=== PATIENT | male | born 1950 | race Caucasian/White ===

== ENCOUNTER 2018-07-05 10:34 | Emergency (ER) | payer MEDICARE ==
--- NOTE | 2018-07-05 11:27 | XRAY Report ---
Reason: cough, fatigue Procedure Date: 07/05/2018 Accession Number: [id number] / [id number] Procedure: XR - Chest 2 View X-Ray CPT Code: 50123 FULL RESULT: EXAM: CHEST RADIOGRAPHY EXAM DATE: 07/05/2018 11:15 AM. CLINICAL HISTORY: Cough, fatigue. COMPARISON: None. TECHNIQUE: 2 views. FINDINGS: Lungs/Pleura: No focal opacities evident. No pleural effusion. No pneumothorax. Normal volumes. Mediastinum: Cardiac silhouette size is within normal limits. There is mild atherosclerotic calcification of the aortic arch. There is a tortuous contour of the descending thoracic aorta. Other: The patient is post median sternotomy with intact sternal cerclage wires. No acute osseous abnormality. There are mild degenerative disk changes of the thoracic spine. IMPRESSION: No acute cardiopulmonary abnormality. RADIA
[2018-07-05] MEDS ORDERED: OSELTAMIVIR 75 MG CAPSULE PO STA (12:06)
--- NOTE | 2018-07-05 12:08 | ED Physician Documentation ---
PD HPI URI - Stated complaint Stated Complaint: FLU LIKE SYSTOMS - Chief complaint Chief Complaint: Resp - History obtained from History obtained from: Patient - History of Present Illness Timing - onset: Other (67-year-old gentleman with history of hypertension and coronary disease as well as AAA that has been repaired presents with 36 hours of cough runny nose and body aches as well as fevers and chills and poor energy. No productive cough. Multiple family members are ill. No recent foreign travel.) Review of Systems Constitutional: reports: Fever, Chills, Myalgias, Fatigue Nose: denies: Foreign Body Throat: denies: Dental pain / toothache Cardiac: denies: Chest pain / pressure, Palpitations Respiratory: reports: Cough. denies: Dyspnea PD PAST MEDICAL HISTORY - Present Medications Home Medications: Ambulatory Orders Medication Instructions Recorded Confirmed Oseltamivir [Tamiflu] 75 mg PO BID #10 capsule 07/05/18 guaiFENesin/CODEINE [Robitussin AC] 5 - 10 ml PO Q6H PRN #120 ml 07/05/18 - Allergies Allergies/Adverse Reactions: Allergies Allergy/AdvReac Type Severity Reaction Status Date / Time No Known Drug Allergies Allergy Verified 07/05/18 11:00 PD ED PE NORMAL - Vitals Vital signs reviewed: Yes - General General: Alert and oriented X 3, No acute distress - HEENT HEENT: Pharynx benign - Neck Neck: Supple, no meningeal sign, No bony TTP - Cardiac Cardiac: RRR, No murmur - Respiratory Respiratory: No respiratory distress, Clear bilaterally - Abdomen Abdomen: Non tender - Derm Derm: Normal color, Warm and dry, No rash - Neuro Neuro: Alert and oriented X 3, Normal speech Results - Vitals Vitals: Vital Signs - 24 hr 07/05/18 10:56 Temperature 36.8 C Heart Rate 95 Respiratory 18 Rate Blood Pressure 140/69 H O2 Saturation 94 Oxygen O2 Source Room air - Labs Labs: Laboratory Tests 07/05/18 11:04 Influenza A (Rapid) POSITIVE H Influenza B (Rapid) Negative - Rads (name of study) 2v chest Radiology: EMP read contemporaneously (NAD) Departure - Departure Disposition: 01 Home, Self Care Clinical Impression: Influenza A Condition: Good Record reviewed to determine appropriate education?: Yes Instructions: ED Flu, Medication: Tamiflu (Oseltamivir) Prescriptions: guaiFENesin/CODEINE [Robitussin AC] 5 - 10 ml PO Q6H PRN #120 ml PRN Reason: Cough Oseltamivir [Tamiflu] 75 mg PO BID #10 capsule Comments: You should be better in another 2-3 days. Return for new or worsening symptoms. Drink plenty of fluids. Your blood pressure was elevated today on check into the emergency department. This does not mean that you have hypertension, it is a common phenomenon to come to the emergency department and have elevated blood pressure. I recommend that you see your primary care physician within the week to have it rechecked when you are feeling better.
[2018-07-05 12:18] VITALS: BP 106/57
== END 2018-07-05 12:20 | disposition home or self-care (01) ==
LOC: ED 10:34
DX: J10.1 Influenza due to other identified influenza virus with other respiratory manifestations (principal); I10 Essential (primary) hypertension; I25.10 Atherosclerotic heart disease of native coronary artery without angina pectoris
CPT/HCPCS: 71046; 87275; 87276; 99282; 99283; A9270